=== PATIENT | female | born 1960 | race Caucasian/White ===

== ENCOUNTER → 2016-07-17 | Outpatient (CLI) | payer BC ==
--- NOTE | 2016-07-17 12:14 | REPMRS ---
Patient History The patient states she had a clinical breast exam in 2015. Family history of colorectal cancer in maternal grandfather and breast cancer in mother at age 64. Digital Mammo Screening Bilat: July 17, 2016 - Exam #: [id number] Bilateral CC and MLO view(s) were taken. Technologist: Aida Grant, Technologist Prior study comparison: June 30, 2015, bilateral digital mammo screening bilat performed at [facility]. June 29, 2014, bilateral digital mammo screening bilat performed at [facility]. June 27, 2013, bilateral digital mammo screening bilat performed at [facility]. FINDINGS: There are scattered fibroglandular densities. There has been no change in the appearance of the mammogram from the prior studies. There is a mild amount of scattered fibroglandular density which is fairly symmetric. There is no interval development of dominant mass, architectural distortion, or clustered microcalcification suggestive of malignancy. ASSESSMENT: BI-RADS/ACR category 1 mammogram. Negative. Recommendation Routine screening mammogram in 1 year (for women over age 40). This mammogram was interpreted with the aid of an FDA-approved computer-aided dectection system. Electronically Signed By: Derek Hooper MD 07/17/16 1707
== END ==
LOC: M RAD 11:44
PROVIDERS: ATTEND Nurse Practitioner Women's Health
DX: Z12.31 Encounter for screening mammogram for malignant neoplasm of breast (principal); Z80.3 Family history of malignant neoplasm of breast

== ENCOUNTER → 2016-10-24 | Outpatient (REF) | payer BC | LOC: M LAB REF 16:26 | PROVIDERS: ATTEND Physician Assistant | DX: J01.00 Acute maxillary sinusitis, unspecified (principal) ==

== ENCOUNTER → 2017-01-19 | Outpatient (CLI) | payer BC ==
[~2017-01-19] MED LIST: GASTROGRAFIN SOLUTION 30ML (Q9963) As Ordered ONE; ISOVUE-370 76% 100ML VIAL (Q9967) As Ordered ONE
--- NOTE | 2017-01-19 14:32 | REP ---
CT abdomen and pelvis without and with IV contrast: With oral contrast. History: Gastroesophageal reflux disease. Epigastric pain. Comparison study February 16, 2015. CT contrast dose: 100 mL of Isovue [address] findings: The lung bases are clear. The liver and spleen are normal in size. There are multiple hepatic cysts noted scattered in the liver. Several of these are slightly larger than on the 2014 prior study. The largest of these in the right lobe measure 18 mm. The largest cyst in the left lobe measures 17 mm. There is a small cyst in the upper pole of the left kidney which measures 13 mm. The common bile duct is at the upper range of normal at 9 mm post cholecystectomy. This is unchanged. No pancreatic lesion is seen. The patient is status post ventral hernia repair with no evidence of recurrent hernia. No mass or seroma is seen. No periaortic mass or adenopathy is observed. Normal caliber aorta is seen. No other vascular abnormality is seen. Small and large intestinal bowel loops are unremarkable in the abdomen and pelvis. The appendix is surgically absent. The uterus is retroverted retroflexed and deviated somewhat to the right as on prior study. No ovarian mass or cyst is seen. Urinary bladder is intact. No bony destructive lesion is appreciated. Impression: 1. Status post cholecystectomy and appendectomy. Common bile duct 9 mm unchanged. 2. Numerous hepatic small cysts some of which are very slightly larger than was the case on the 2014 prior study. 3. Simple cyst upper pole left kidney. 4. Status post ventral hernia repair just above the umbilicus. 5. Retroverted uterus as before. 6. No other acute abnormality. Signed by Luis Hooper MD 01/19/2017 04:33 P
== END ==
LOC: M RAD 12:26
PROVIDERS: ATTEND Surgery
DX: K21.9 Gastro-esophageal reflux disease without esophagitis (principal); R10.13 Epigastric pain; K76.89 Other specified diseases of liver; N28.1 Cyst of kidney, acquired; N85.4 Malposition of uterus; Z90.49 Acquired absence of other specified parts of digestive tract
CPT/HCPCS: 74178; Q9963; Q9967

== ENCOUNTER → 2019-03-18 | Outpatient (CLI) | payer BC ==
--- NOTE | 2019-03-19 03:19 | REP ---
Clinical: Lower back pain . Technique: AP, lateral, bilateral oblique, and coned-down views. Findings: Lordosis is maintained. The vertebral bodies including transverse process and spinous processes are intact and normal. There is no evidence for acute fracture / compression injury or subluxation. No evidence for spondylolysis or spondylolisthesis. Minimal age-related degenerative changes. Impression: Essentially age-appropriate examination. If the patient remains symptomatic consider MRI for further investigation. Electronically Signed by Pérez Courtney MD 03/19/2019 03:10 A
== END ==
LOC: M WUC 17:11
PROVIDERS: ATTEND Physician Assistant
DX: M54.5 Low back pain (principal)

== ENCOUNTER → 2019-05-14 | Outpatient (CLI) | payer BC ==
--- NOTE | 2019-05-14 13:20 | REPMRS ---
Patient History The patient states she had a clinical breast exam in July 2018. Family history of breast cancer at age 64 in mother, colorectal cancer in maternal grandfather. Digital Mammo Screening Bilat: May 14, 2019 - Exam #: [id number] Bilateral CC and MLO view(s) were taken. Technologist: Yanira Wang, Technologist Prior study comparison: July 17, 2016, bilateral digital mammo screening bilat performed at [facility]. June 30, 2015, bilateral digital mammo screening bilat performed at [facility]. June 29, 2014, bilateral digital mammo screening bilat performed at [facility]. FINDINGS: There are scattered fibroglandular densities. There has been no change in the appearance of the mammogram from the prior studies. There is a mild amount of scattered fibroglandular density which is fairly symmetric. There is no interval development of dominant mass, architectural distortion, or grouped microcalcification suggestive of malignancy. 3-D tomosynthesis shows no additional findings. Assessment: BI-RADS/ACR category 1 mammogram. Negative Mammogram. Recommendation Routine screening mammogram of both breasts in 1 year (for women over age 40). This patient's Lifetime Breast Cancer Risk is estimated at 13.7 %. This mammogram was interpreted with the aid of an FDA-approved computer-aided dectection system. Electronically Signed By: Derek Hooper MD 05/14/19 2476
== END ==
LOC: M RAD 12:40
PROVIDERS: ATTEND Nurse Practitioner Women's Health
DX: Z12.31 Encounter for screening mammogram for malignant neoplasm of breast (principal)

== ENCOUNTER 2020-03-05 13:35 | Emergency (ER) | payer BC ==
[~2020-03-05] VITALS: Ht 172.7 cm; Wt 69.5 kg
[2020-03-05] MEDS ORDERED: GI COCKTAIL 50ML BTL(HYOSCYAMINE/MAALOX/LIDOCAINE VISCOUS)(1:3:1) PO ONE (13:45)
[2020-03-05] MEDS ORDERED: ISOVUE-370 76% 100ML VIAL As Ordered ONE (15:10)
[2020-03-05 15:38] LABS: ALBUMIN 3.7 GM/DL (3.2-5.2); ALT/SGPT 19 U/L (12-78); AMYLASE 55 U/L (25-115); BILIRUBIN,DIRECT 0.1 MG/DL (0.0-0.2); BILIRUBIN,TOTAL 0.3 MG/DL (0.2-1.0); CK-MB VALUE MASS < 1.0 NG/ML (<3.6); CPK CREATINE PHOSPHOKINASE 61 U/L (26-192); LIPASE 124 U/L (73-393); MB/CK RELATIVE INDEX 1.64 (< OR =4); TOTAL PROTEIN 6.3 GM/DL (6.4-8.2); TROPONIN I < 0.02 NG/ML (< 0.10)
[2020-03-05 15:40] LABS: BASO % 0.6 % (0.0-1.0); EOS # 0.1 10^3/uL (0.0-0.5); EOS % 1.4 % (0.0-3.0); HEMATOCRIT 48.4 % (36.0-47.0); HEMOGLOBIN 15.3 g/dl (12.0-15.5); LYMPH % 31.1 % (24.0-44.0); MEAN CORPUSCULAR HEMOGLOBIN 29.1 pg (27.0-33.0); MEAN CORPUSCULAR HGB CONC 31.6 g/dl (32.0-36.5); MONO # 0.4 10^3/uL (0.0-0.8); MONO % 5.8 % (0.0-5.0); NEUTROPHILS % 60.8 % (36.0-66.0); PLATELET COUNT, AUTOMATED 237 10^3/uL (150-450); RED BLOOD COUNT 5.26 10^6/uL (4.00-5.40); WHITE BLOOD COUNT 6.6 10^3/uL (4.0-10.0)
--- NOTE | 2020-03-05 16:03 | REPVR ---
PROCEDURE INFORMATION: Exam: CT Abdomen And Pelvis With Contrast Exam date and time: 03/05/2020 3:18 PM Age: 59 years old Clinical indication: Abdominal pain; Generalized TECHNIQUE: Imaging protocol: Computed tomography of the abdomen and pelvis with intravenous contrast. Coronal and sagittal reformats were created and reviewed. Radiation optimization: All CT scans at this facility use at least one of these dose optimization techniques: automated exposure control; mA and/or kV adjustment per patient size (includes targeted exams where dose is matched to clinical indication); or iterative reconstruction. Contrast material: ISOVUE 370; Contrast volume: 100 ml; Contrast route: INTRAVENOUS (IV); COMPARISON: CT ABD PELVIS W/O FOL BY WIT 01/19/2017 1:45 PM FINDINGS: Lungs: Mosaic attenuation consistent with multifocal air trapping of the bilateral lower lungs is redemonstrated. Right middle lobe mild linear atelectasis/scarring. Liver: Numerous circumscribed hypoattenuating hepatic lesions consistent with cysts are redemonstrated. No hepatomegaly. Gallbladder and bile ducts: Status post cholecystectomy. The common bile duct is again abnormally dilated, however mildly decreased compared to 01/19/2017. The common bile duct now measures up to 1.3 cm in diameter, previously measuring 1.5 cm. Decreased, now very mild, central intrahepatic bile duct dilation. Pancreas: Pancreas is unremarkable. Spleen: Spleen is unremarkable. Adrenals: Adrenal glands are unremarkable. Kidneys and ureters: No hydronephrosis of either kidney. Symmetric bilateral renal enhancement. Left kidney upper pole 0.9 cm homogeneous hypoattenuating simple-appearing cyst is redemonstrated. No follow-up is necessary for this simple-appearing cyst. No abnormal ureteral dilation. Stomach and bowel: The stomach is decompressed; this limits evaluation of its wall thickness. Colonic diverticula are present without evidence of acute diverticulitis. No evidence of small bowel inflammation or obstruction. Appendix: The appendix is not identified. No pericecal inflammation is identified. Intraperitoneal space: No free intraperitoneal fluid. No pneumoperitoneum. Vasculature: Atherosclerosis. No abdominal aortic aneurysm. Lymph nodes: No enlarged lymph nodes. Bladder: The urinary bladder is decompressed. Reproductive: The uterus and adenexa are unremarkable. Bones/joints: Multilevel degenerative spine disease. Bilateral L4-L5 neural foraminal stenoses. Unchanged nonaggressive appearing sclerotic lesion of the left S1 sacral ala. Soft tissues: Anterior abdominal wall surgical mesh. IMPRESSION: The patient is status post cholecystectomy. Abnormal common bile duct dilation and central intrahepatic bile duct dilation is mildly improved but not resolved compared to 01/19/2017. The degree of ductal dilation is greater than is normally seen as compensatory in a patient status post cholecystectomy. Clinical correlation is needed to exclude a distal common bile duct obstruction. Electronically signed by: Nelson Vaughn On 03/05/2020 16:03:40 PM
--- NOTE | 2020-03-05 17:52 | REPVR ---
PROCEDURE INFORMATION: Exam: MR Abdomen Without Contrast Exam date and time: 03/05/2020 5:23 PM Age: 59 years old Clinical indication: Abdominal pain; Generalized; Patient HX: Mrcp; Additional info: Abdominal pain, dilated biliary tract TECHNIQUE: Imaging protocol: MR of the abdomen without contrast. 3D rendering (Not supervised by radiologist): MIP and/or 3D reconstructed images were created by the technologist. COMPARISON: CT ABD/PEL W/IV CONTRAST ONLY 03/05/2020 3:09 PM FINDINGS: Liver: Numerous lesions are noted in the liver possibly cysts seen on the CT. These cannot be fully evaluated on this limited study. Gallbladder and bile ducts: Gallbladder is been removed. Common bile duct is dilated measuring up to 12 mm its proximal portion but its distal portion is normal at 6 mm. No definite stricture is identified but there is a change in characteristics of its size. Pancreas: Unremarkable. No ductal dilation. Part of the pancreas duct is not seen within the head of the pancreas although the pancreatic duct itself is very small at 1 mm in this could be technical. Spleen: Unremarkable. No splenomegaly. Adrenals: Unremarkable. No mass. Kidneys and ureters: There is a suspected left renal 1 cm cyst. Stomach and bowel: Visualized stomach and intestines are unremarkable. Intraperitoneal space: No free fluid. Arteries: No abdominal aortic aneurysm. Bones/joints: Unremarkable. Soft tissues: Unremarkable. IMPRESSION: 1. Dilated common bile duct in its more superior portion. There is a change from 12-6 mm but no definite stricture is seen. No stones. 2. Numerous liver lesions likely cysts. Left renal cyst. Electronically signed by: Matty Lal On 03/05/2020 17:51:58 PM
[2020-03-05] MEDS ORDERED: ONDA4TAB6 PO (18:24)
[2020-03-05 18:39] VITALS: BP 147/93
--- NOTE | 2020-03-06 13:39 | ED PDOC ---
Post-Departure Follow-Up grace raymundo and adama faxed formal report of mri abd for fu Keenan Hernandez MD Mar 06, 2020 13:39
--- NOTE | 2020-03-06 14:16 | ED PDOC ---
Post-Departure Follow-Up dr galan faxed formal report of ct abd/p for fu Keenan Hernandez MD Mar 06, 2020 14:16
--- NOTE | 2020-03-09 14:34 | ECGEPIP ---
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
== END 2020-03-05 18:42 | disposition home or self-care (01) ==
LOC: M ED 13:35
DX: K83.8 Other specified diseases of biliary tract (principal); Z88.8 Allergy status to other drugs, medicaments and biological substances; F17.210 Nicotine dependence, cigarettes, uncomplicated
CPT/HCPCS: 36415; 74177; 74181; 80047; 80076; 81001; 82150; 82550; 82553; 83605; 83690; 84484; 85025; 93005; 93041; 99284; Q9967

== ENCOUNTER → 2020-06-09 | Outpatient (CLI) | payer SELFPAY ==
[~2020-06-09] MED LIST changes: -GASTROGRAFIN SOLUTION 30ML (Q9963) As Ordered ONE; -ISOVUE-370 76% 100ML VIAL (Q9967) As Ordered ONE; +ONDA4TAB6 PO
== END ==
LOC: M LABSMTC 13:00
PROVIDERS: ATTEND Pediatrics
DX: Z11.59 Encounter for screening for other viral diseases (principal)

== ENCOUNTER → 2021-09-28 | Outpatient (REF) | LOC: M LABSMTC 09:15 | PROVIDERS: ATTEND Family Medicine | DX: Z11.52 Encounter for screening for COVID-19 (principal) ==

== ENCOUNTER → 2022-03-23 | Outpatient (REF) | LOC: M LABSMTC 10:09 | PROVIDERS: ATTEND Family Medicine | DX: Z20.822 Contact with and (suspected) exposure to COVID-19 (principal) ==

== ENCOUNTER → 2022-04-27 | Outpatient (REF) | payer BC | LOC: M WUC 16:27 | PROVIDERS: ATTEND Physician Assistant | DX: N39.0 Urinary tract infection, site not specified (principal) ==

== ENCOUNTER → 2022-06-15 | Outpatient (REF) | LOC: M LABSMTC 09:23 | PROVIDERS: ATTEND Family Medicine | DX: Z11.52 Encounter for screening for COVID-19 (principal) ==

== ENCOUNTER → 2022-08-21 | Outpatient (REF) | LOC: M LABSMTC 10:10 | PROVIDERS: ATTEND Family Medicine | DX: Z11.52 Encounter for screening for COVID-19 (principal) ==

== ENCOUNTER → 2022-10-17 | Outpatient (REF) | payer BC | LOC: M SFHCWAGY 13:02 | PROVIDERS: ATTEND Nurse Practitioner Family | DX: Z12.4 Encounter for screening for malignant neoplasm of cervix (principal) | CPT/HCPCS: 87624; G0123 ==

== ENCOUNTER → 2022-10-17 | Outpatient (CLI) | payer BC | LOC: M WHC 08:03 | PROVIDERS: ATTEND Specialist | DX: Z12.31 Encounter for screening mammogram for malignant neoplasm of breast (principal) ==

== ENCOUNTER → 2023-06-20 | Outpatient (REF) | LOC: M EMP 07:35 | PROVIDERS: ATTEND Family Medicine | DX: Z11.52 Encounter for screening for COVID-19 (principal) ==

== ENCOUNTER → 2023-10-09 | Outpatient (REF) | payer BC | LOC: M LAB REF 12:30 | PROVIDERS: ATTEND Internal Medicine | DX: R41.81 Age-related cognitive decline (principal) ==

== ENCOUNTER → 2023-11-15 | Outpatient (CLI) | payer BC | LOC: M WHC 11:23 | PROVIDERS: ATTEND Nurse Practitioner Family | DX: Z12.31 Encounter for screening mammogram for malignant neoplasm of breast (principal) ==

== ENCOUNTER → 2023-11-15 | Outpatient (REF) | payer BC | LOC: M SFHCWAGY 17:37 | PROVIDERS: ATTEND Nurse Practitioner Family | DX: Z12.4 Encounter for screening for malignant neoplasm of cervix (principal); Z11.51 Encounter for screening for human papillomavirus (HPV) | CPT/HCPCS: 87624; G0123 ==

== ENCOUNTER → 2023-11-16 | Outpatient (CLI) | payer BC ==
[~2023-11-16] MED LIST changes: +ONDA-282 PO; -ONDA4TAB6 PO
[2023-11-16 10:38] LABS: APPEARANCE, URINE CLEAR (CLEAR); BACTERIA, URINE AUTO NEGATIVE (NEGATIVE); BILIRUBIN, URINE AUTO NEGATIVE (NEGATIVE); BLOOD, URINE BLOOD 1+ (NEGATIVE); COLOR, URINE YELLOW (YELLOW); GLUCOSE, URINE (UA) AUTO NEGATIVE (NEGATIVE); KETONE, URINE AUTO NEGATIVE (NEGATIVE); LEUKOCYTE ESTERASE, URINE AUTO NEGATIVE (NEGATIVE); NITRITE, URINE AUTO NEGATIVE (NEGATIVE); PROTEIN, URINE AUTO NEGATIVE (NEGATIVE); RBC, URINE AUTO 4 /HPF (0-3); SPECIFIC GRAVITY URINE AUTO 1.014 (1.002-1.035); SQUAMOUS EPITHELIAL CELL UR AU 2 /HPF (0-6); UROBILINOGEN, URINE AUTO 0.2 mg/dL (0.0-2.0); WBC, URINE AUTO 1 /HPF (0-3)
== END ==
LOC: M LAB 08:49
PROVIDERS: ATTEND Internal Medicine Cardiovascular Disease
DX: I49.40 Unspecified premature depolarization (principal); I10 Essential (primary) hypertension

== ENCOUNTER → 2023-11-21 | Outpatient (CLI) | payer BC ==
[~2023-11-21] MED LIST changes: -ONDA-282 PO; +ONDA4TAB6 PO
== END ==
LOC: M PLAIMG 07:37
PROVIDERS: ATTEND Internal Medicine Cardiovascular Disease
DX: I35.1 Nonrheumatic aortic (valve) insufficiency (principal); R94.31 Abnormal electrocardiogram [ECG] [EKG]

== ENCOUNTER → 2023-11-30 | Outpatient (CLI) | payer BC ==
[~2023-11-30] MED LIST changes: +ONDA-282 PO; -ONDA4TAB6 PO
[2023-11-30 13:22] LABS: ALBUMIN 3.5 G/DL (3.2-5.2); ALKALINE PHOSPHATASE 64 U/L (46-116); ALT/SGPT 18 U/L (7.0-40); AST/SGOT 14 U/L (<34); BILIRUBIN,TOTAL 0.5 MG/DL (0.3-1.2); BLOOD UREA NITROGEN 10 MG/DL (9-23); CALCIUM LEVEL 9.4 MG/DL (8.3-10.6); CARBON DIOXIDE LEVEL 32 MMOL/L (20-31); CHLORIDE LEVEL 105 MMOL/L (98-107); CHOLESTEROL LEVEL 139 MG/DL (<200); CHOLESTEROL RISK RATIO 2.38 (<5); CREATININE FOR GFR 0.67 MG/DL (0.55-1.30); GLOMERULAR FILTRATION RATE > 60.0 (>45); GLUCOSE, FASTING 81 MG/DL (74-106); HDL CHOLESTEROL 58.2 MG/DL (>40); LDL CHOLESTEROL 61.8 MG/DL (<100); NON-HDL-C 80.8 MG/DL; POTASSIUM SERUM 4.3 MMOL/L (3.5-5.1); SODIUM LEVEL 140 MMOL/L (136-145); TOTAL PROTEIN 5.6 G/DL (5.7-8.2); TRIGLYCERIDES LEVEL 95 MG/DL (<150)
== END ==
LOC: M LAB 12:12
PROVIDERS: ATTEND Internal Medicine Cardiovascular Disease
DX: E78.00 Pure hypercholesterolemia, unspecified (principal); I10 Essential (primary) hypertension

== ENCOUNTER → 2023-12-03 | Outpatient (CLI) | payer BC | LOC: M RAD 09:05 | PROVIDERS: ATTEND Internal Medicine Cardiovascular Disease | DX: I10 Essential (primary) hypertension (principal); N28.1 Cyst of kidney, acquired; I70.1 Atherosclerosis of renal artery ==

== ENCOUNTER → 2023-12-12 | Outpatient (CLI) | payer BC | LOC: M RAD 06:45 | PROVIDERS: ATTEND Internal Medicine | DX: Z87.891 Personal history of nicotine dependence (principal) ==

== ENCOUNTER → 2023-12-31 | Outpatient (REF) | LOC: M EMP 11:50 | PROVIDERS: ATTEND Family Medicine | DX: Z11.52 Encounter for screening for COVID-19 (principal) ==

== ENCOUNTER → 2024-01-02 | Outpatient (REF) | LOC: M EMP 09:39 | PROVIDERS: ATTEND Family Medicine | DX: Z11.52 Encounter for screening for COVID-19 (principal) ==

== ENCOUNTER → 2024-05-20 | Outpatient (REF) | payer BC | LOC: M LAB REF 17:43 | PROVIDERS: ATTEND Internal Medicine | DX: R51.9 Headache, unspecified (principal) ==

== ENCOUNTER → 2024-06-27 | Outpatient (REF) | payer BC | LOC: M LAB REF 16:11 | PROVIDERS: ATTEND Physician Assistant | DX: R30.0 Dysuria (principal) ==

== ENCOUNTER → 2024-09-24 | Outpatient (REF) | LOC: M EMP 08:38 | PROVIDERS: ATTEND Family Medicine | DX: Z11.52 Encounter for screening for COVID-19 (principal) ==

== ENCOUNTER → 2025-01-06 | Outpatient (CLI) | payer BC | LOC: M RAD 06:54 | PROVIDERS: ATTEND Internal Medicine | DX: Z87.891 Personal history of nicotine dependence (principal) ==

== ENCOUNTER 2025-02-18 06:46 | Day surgery (SDC) | payer BC ==
[~2025-02-18] VITALS: Ht 172.7 cm; Wt 64.0 kg
[~2025-02-18 06:46] MED LIST changes: +AMLO1TAB24 PO; +ATOR1TAB21 PO; +BUPR15TA PO; +IBUP80TA; +LOSA50TA28 PO; +PANT40TA29 PO; +VITA100093 PO
[2025-02-18] MEDS ORDERED: LIDOCAINE 2% 100 MG/5 ML SDV (FOR ANES.) As Ordered ONE (07:25)
[2025-02-18 08:17] VITALS: TEMP 96.7
[2025-02-18 08:33] VITALS: BP 134/93; O2SAT 98
== END 2025-02-18 08:35 | disposition home or self-care (01) ==
LOC: M OPP 06:46
PROVIDERS: ATTEND Internal Medicine Gastroenterology
DX: Z12.11 Encounter for screening for malignant neoplasm of colon (principal); D12.2 Benign neoplasm of ascending colon; K57.30 Diverticulosis of large intestine without perforation or abscess without bleeding; K64.0 First degree hemorrhoids; K22.89 Other specified disease of esophagus; K44.9 Diaphragmatic hernia without obstruction or gangrene; K31.89 Other diseases of stomach and duodenum; R12 Heartburn; Z88.8 Allergy status to other drugs, medicaments and biological substances; Z79.899 Other long term (current) drug therapy; F17.210 Nicotine dependence, cigarettes, uncomplicated
CPT/HCPCS: 43239; 45380; 45385; 88305; J3010